=== PATIENT | female | born 1950 | race African-American/Black ===

== ENCOUNTER 2019-11-11 09:52 | Outpatient (CLI) | payer MEDICARE ==
--- NOTE | 2019-11-11 11:24 | Fluoroscopy Report ---
UPPER GI HISTORY: PEPTIC ULCER / indigestion/heartburn. TECHNIQUE: Single and double contrast barium technique utilized to evaluate the esophagus, stomach, and duodenal C-loop. FINDINGS: To begin the exam, swallowing was evaluated in the lateral position under direct fluorosco py. Swallowing was normal. No mucosal irregularity, mass, mass effect, or critical stenosis. There were no abnormal tertiary c ontractions as seen with dysmotility. No gastroesophageal reflux. IMPRESSION: Unremarkable exam. Fluoroscopic time: 2.2 minutes Number of fluoroscopic images: 27 Signer Name: Isacc Velasquez Jr, MD Signed: 11/11/2019 11:19 AM Workstation Name: [id number]
== END 2019-11-11 09:53 | disposition home or self-care (01) ==
LOC: FLUORO 09:52
PROVIDERS: ATTEND Internal Medicine Geriatric Medicine
DX: K27.9 Peptic ulcer, site unspecified, unspecified as acute or chronic, without hemorrhage or perforation (principal)
CPT/HCPCS: 74246